=== PATIENT | female | born 1980 | race Caucasian/White ===

== ENCOUNTER 2016-08-05 11:11 | Emergency (ER) | payer SELFPAY ==
[~2016-08-05] VITALS: Ht 165.1 cm; Wt 71.0 kg
[~2016-08-05 11:11] MED LIST: CIPR250T2 PO; DICY1TAB26 PO; PROM25SU8 PO; Z.0.BCPILL PO
[2016-08-05 11:13] VITALS: BP 113/79; PULSE 94; RESP 20; TEMP 98.3; O2SAT 99
--- NOTE | 2016-08-05 11:27 | PD ---
Physical Exam Time Seen by Provider: 11:25 Narrative 36yo F c/o generalized abd pain and diarrhea x 3 days. +vomiting x 1. Denies fever. LMP ended 5 days ago. Patient seen in triage. Awaiting bed placement. VS reviewed. Data Data Last Documented VS Vital Signs Date Time Temp Pulse Resp B/P Pulse Ox O2 Delivery O2 Flow Rate FiO2 08/05/16 11:13 98.3 94 20 113/79 99 Room Air MDM Supervised Visit with BRIANNA: Negra Souza Aug 05, 2016 11:27
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
[2016-08-05 14:36] LABS: BACTERIA, URINE RARE /hpf; BLOOD, URINE SMALL (NEG); COMMENT (UR) CULT NOT INDICATED; CULTURE IF INDICATED CULT NOT INDICATED; GLUCOSE,URINE NEG (NEG); KETONE, URINE NEG (NEG); NITRITE,URINE NEG (NEG); PH, URINE 5.5 (5.0-8.5); SQUAMOUS EPITHELIAL CELL URINE 3 /hpf (0-5); URINE COLOR YELLOW (YELLW/STRAW)
== END 2016-08-05 15:32 | disposition home or self-care (01) ==
LOC: NEPD 11:11
DX: R10.84 Generalized abdominal pain (principal); F10.10 Alcohol abuse, uncomplicated; S90.822A Blister (nonthermal), left foot, initial encounter; S90.821A Blister (nonthermal), right foot, initial encounter; R19.7 Diarrhea, unspecified; R11.10 Vomiting, unspecified; I10 Essential (primary) hypertension; Z59.0 Homelessness; X58.XXXA Exposure to other specified factors, initial encounter
CPT/HCPCS: 81001; 84703; 99283

== ENCOUNTER 2016-10-06 22:48 | Observation (INO) | payer SELFPAY ==
[~2016-10-06] VITALS: Ht 165.1 cm; Wt 70.0 kg
[~2016-10-06 22:48] MED LIST changes: +IOHEXOL 350 MG/ML 10 ML VIAL (for RAD DIAG) IVCONTRAST ONE
[2016-10-06 23:02] VITALS: BP 134/86; PULSE 78; RESP 18; TEMP 98.8; O2SAT 100
[2016-10-06] MEDS ORDERED: SODIUM CHLOR 0.9% 1000 ML INJ 1,000 ML IV SCH (23:07)
[2016-10-06 23:15] VITALS: O2SAT 98
[2016-10-06] MEDS ORDERED: SODIUM CHLORIDE 0.9% FLUSH 10 ML FLUSH IVF PRN (23:15)
[2016-10-06] MEDS ORDERED: PANTOPRAZOLE SODIUM 40 MG VIAL IVP ONE (23:15)
--- NOTE | 2016-10-06 23:37 | PD ---
HPI Chief Complaint: Bleeding Time Seen by Provider: 23:33 Travel History International Travel<30 days: No Contact w/Intl Traveler<30days: No Traveled to known affect area: No History of Present Illness HPI 36-year-old female with history of alcohol abuse, cirrhosis, previous GI bleed, presents to the ER today for several days history of blood in the stools, vomiting up blood today, abdominal pains. She states is currently a 9 out of 10. She denies any fevers or other symptoms. Patient states that she had put out about a cup of bloody stools today. Modifying Factors: None Associated Signs & Symptoms: Nausea, vomiting with blood, blood in the stools, abdominal pain Risk Factors: Cirrhosis PFSH Past Medical History Asthma: Yes Depression: Yes Diminished Hearing: No Hypertension: Yes Reproductive: Yes (HPV) Respiratory: Yes (ASTHMA) Immunizations Current: Yes ?: Unknown LMP: 6 weeks : 3 Para: 1 Social History Alcohol Use: Yes (DAILY) Tobacco Use: No Substance Use: No Allergies-Medications (Allergen,Severity, Reaction): Coded Allergies: ciprofloxacin (Unverified Allergy, Severe, Urinary Freq (Inc/Dec), 10/06/16 ) Reported Meds & Prescriptions Reported Meds & Active Scripts Active No Active Prescriptions or Reported Medications Review of Systems Except as stated in HPI: all other systems reviewed are Neg Physical Exam Narrative GENERAL: Well-developed female patient currently in moderate distress. Awake and oriented 3. SKIN: Focused skin assessment warm/dry. HEAD: Atraumatic. Normocephalic. EYES: Pupils equal and round. No scleral icterus. No injection or drainage. ENT: No nasal bleeding or discharge. Mucous membranes pink and moist. NECK: Trachea midline. No JVD. CARDIOVASCULAR: Regular rate and rhythm. No murmur appreciated. RESPIRATORY: No accessory muscle use. Clear to auscultation. Breath sounds equal bilaterally. GASTROINTESTINAL: Abdomen soft, diffuse abdominal tenderness without guarding or rebound, nondistended. Hepatic and splenic margins not palpable. RECTAL EXAM: No masses or tenderness, stool is reddish brown. Hemoccult positive. MUSCULOSKELETAL: No obvious deformities. No clubbing. No cyanosis. No edema. NEUROLOGICAL: Awake and alert. No obvious cranial nerve deficits. Motor grossly within normal limits. Normal speech. PSYCHIATRIC: Appropriate mood and affect; insight and judgment normal. Data Data Last Documented VS Vital Signs Date Time Temp Pulse Resp B/P (MAP) Pulse Ox O2 Delivery O2 Flow Rate FiO2 10/06/16 23:15 98 Room Air 10/06/16 23:02 98.8 78 18 134/86 (102) Orders Orders Complete Blood Count With Diff (10/06/16 23:05) Comprehensive Metabolic Panel (10/06/16 23:05) Prothrombin Time / Inr (Pt) (10/06/16 23:05) Act Partial Throm Time (Ptt) (10/06/16 23:05) Ecg Monitoring (10/06/16 23:05) Orthostatic Vital Signs (10/06/16 23:05) Oximetry (10/06/16 23:05) Oxygen Administration (10/06/16 23:05) Iv Access Insert/Monitor (10/06/16 23:05) Type And Screen (10/06/16 23:05) Ed Urine Pregnancytest Poc (10/06/16 23:05) Pantoprazole Inj (Protonix Inj) (10/06/16 23:15) Sodium Chlor 0.9% 1000 Ml Inj (Ns 1000 M (10/06/16 23:07) Sodium Chloride 0.9% Flush (Ns Flush) (10/06/16 23:15) Lipase (10/06/16 23:15) Morphine Inj (Morphine Inj) (10/06/16 23:45) Ondansetron Inj (Zofran Inj) (10/06/16 23:45) Ct Abd/Pel W Iv Contrast(Rout) (10/06/16 23:33) Iohexol 350 Inj (Omnipaque 350 Inj) (10/06/16 00:34) Admit Order (Ed Use Only) (10/07/16 02:10) Labs Laboratory Tests Test 10/06/16 23:15 White Blood Count 7.3 TH/MM3 Red Blood Count 4.18 MIL/MM3 Hemoglobin 13.2 GM/DL Hematocrit 39.4 % Mean Corpuscular Volume 94.2 FL Mean Corpuscular Hemoglobin 31.5 PG Mean Corpuscular Hemoglobin Concent 33.5 % Red Cell Distribution Width 15.5 % Platelet Count 80 TH/MM3 Mean Platelet Volume 8.8 FL Neutrophils (%) (Auto) 67.7 % Lymphocytes (%) (Auto) 25.1 % Monocytes (%) (Auto) 5.3 % Eosinophils (%) (Auto) 1.4 % Basophils (%) (Auto) 0.5 % Neutrophils # (Auto) 4.9 TH/MM3 Lymphocytes # (Auto) 1.8 TH/MM3 Monocytes # (Auto) 0.4 TH/MM3 Eosinophils # (Auto) 0.1 TH/MM3 Basophils # (Auto) 0.0 TH/MM3 CBC Comment AUTO DIFF Differential Comment AUTO DIFF CONFIRMED Prothrombin Time 14.1 SEC Prothromb Time International Ratio 1.3 RATIO Activated Partial Thromboplast Time 31.5 SEC Blood Urea Nitrogen 4 MG/DL Creatinine 0.71 MG/DL Random Glucose 101 MG/DL Total Protein 7.8 GM/DL Albumin 3.2 GM/DL Calcium Level 8.5 MG/DL Alkaline Phosphatase 87 U/L Aspartate Amino Transf (AST/SGOT) 100 U/L Alanine Aminotransferase (ALT/SGPT) 40 U/L Total Bilirubin 1.3 MG/DL Sodium Level 142 MEQ/L Potassium Level 3.8 MEQ/L Chloride Level 109 MEQ/L Carbon Dioxide Level 23.7 MEQ/L Anion Gap 9 MEQ/L Estimat Glomerular Filtration Rate 93 ML/MIN Lipase 162 U/L MDM Medical Decision Making Medical Screen Exam Complete: Yes Emergency Medical Condition: Yes Medical Record Reviewed: Yes Interpretation(s) Laboratory Tests Test 10/06/16 23:15 Platelet Count 80 TH/MM3 (150-450) Prothrombin Time 14.1 SEC (9.8-11.6) Activated Partial Thromboplast Time 31.5 SEC (24.3-30.1) Blood Urea Nitrogen 4 MG/DL (7-18) Albumin 3.2 GM/DL (3.4-5.0) Aspartate Amino Transf (AST/SGOT) 100 U/L (15-37) Total Bilirubin 1.3 MG/DL (0.2-1.0) Chloride Level 109 MEQ/L (98-107) Last 24 hours Impressions Abdomen/Pelvis CT 10/06/16 2253 Signed Impressions: Service Date/Time: Friday, October 07, 2016 00:23 - CONCLUSION: 1. No acute finding is identified in the abdomen or pelvis. 2. However, there is hepatomegaly with cirrhosis. There also findings diagnostic of portal hypertension including splenomegaly, recannulized paraumbilical vein, and varices throughout the abdomen. Karlos Fletcher MD Differential Diagnosis GI bleed versus hemorrhoidal bleed versus coagulopathy Narrative Course Patient has long history of hepatic issues with peripheral hypertension. She is currently having gastrointestinal bleeding although vital signs are stable at the moment. Her H&H appears to be stable. She states she had put out a couple of bleeding already and at this point, my consideration would be to observe her for GI bleeding. Case was discussed with Dr. Garza for admission. [facility] Point of Care Internal Pos. & Neg. Controls: Passed Fecal Specimen Occult Blood: Positive Diagnosis Primary Impression: GI bleeding Admitting Information Admitting Physician Requests: Admit Scripts No Active Prescriptions or Reported Meds Hawa Almonte MD Oct 06, 2016 23:37
[2016-10-06 23:45] LABS: APTT (PATIENT) 31.5 SEC (24.3-30.1); INTERNATIONAL NORMALIZED RATIO 1.3 RATIO; PROTHROMBIN TIME - PATIENT 14.1 SEC (9.8-11.6)
[2016-10-06] MEDS ORDERED: ONDANSETRON HCL 4 MG/2 ML VIAL IV PUSH ONE (23:45)
[2016-10-06] MEDS ORDERED: MORPHINE SULFATE 4 MG/ML INJ IV PUSH ONE (23:45)
[2016-10-06 23:49] LABS: ALT (GPT) 40 U/L (10-53)
[2016-10-06 23:51] LABS: ALKALINE PHOSPHATASE 87 U/L (45-117); TOTAL BILIRUBIN ADULT 1.3 MG/DL (0.2-1.0)
[2016-10-06 23:53] LABS: ANION GAP 9 MEQ/L (5-15); AST (GOT) 100 U/L (15-37); AUTOMATED NEUTROPHIL # 4.9 TH/MM3 (1.8-7.7); BASOPHIL % 0.5 % (0.0-2.0); BICARBONATE 23.7 MEQ/L (21.0-32.0); BLOOD UREA NITROGEN 4 MG/DL (7-18); CHLORIDE 109 MEQ/L (98-107); EOSINOPHIL # 0.1 TH/MM3 (0-0.4); EOSINOPHIL % 1.4 % (0.0-4.0); GLOMERULAR FILTRATION RATE 93 ML/MIN (>89); HEMATOCRIT 39.4 % (35.0-46.0); LYMPH % 25.1 % (9.0-44.0); LYMPHOCYTE # 1.8 TH/MM3 (1.0-4.8); MEAN CELL VOLUME 94.2 FL (80.0-100.0); MEAN CORPUSCULAR HEMOGLOBIN 31.5 PG (27.0-34.0); MEAN CORPUSCULAR HGB CONC 33.5 % (32.0-36.0); MONO % 5.3 % (0.0-8.0); NEUT % 67.7 % (16.0-70.0); PLATELET COUNT 80 TH/MM3 (150-450); RED BLOOD COUNT 4.18 MIL/MM3 (4.00-5.30); RED CELL DISTRIBUTION WIDTH 15.5 % (11.6-17.2); SODIUM (NA) 142 MEQ/L (136-145); WHITE BLOOD COUNT 7.3 TH/MM3 (4.0-11.0)
[2016-10-06 23:55] LABS: POTASSIUM 3.8 MEQ/L (3.5-5.1)
[2016-10-07] VITALS (7 sets, daily range): BP systolic 105–146; BP diastolic 64–89; PULSE 69–83; RESP 16–21; TEMP 97.5–98.6; O2SAT 96–100
[2016-10-07 00:08] LABS: HEMO FLAGS AUTO DIFF
--- NOTE | 2016-10-07 00:47 | RADRPT ---
EXAM DATE/TIME: 10/07/2016 00:23 [facility] COMPARISON: No previous studies available for comparison. INDICATIONS : Abdominal pain. IV CONTRAST: 95 cc Omnipaque 350 (iohexol) IV ORAL CONTRAST: No oral contrast ingested. RADIATION DOSE: 6.75 CTDIvol (mGy) MEDICAL HISTORY : Hypertension. Asthma. SURGICAL HISTORY : None. ENCOUNTER: Initial ACUITY: 1 day PAIN SCALE: 4/10 LOCATION: Bilateral abdomen TECHNIQUE: Volumetric scanning of the abdomen and pelvis was performed. Using automated exposure control and ad justment of the mA and/or kV according to patient size, radiation dose was kept as low as reasonably achievable to obtain optimal diagnostic quality images. DICOM format image data is available electro nically for review and comparison. FINDINGS: There is respiratory motion artifact. LOWER LUNGS: The visualized lower lungs are clear. LIVER: Failure measures 20 cm in length and demonstrates heterogeneous enhancement without a focal lesion ap preciated. There is an enlarged caudate lobe. Portal vein is decreased in size measuring approximatel y 7 mm. No calcified gallstones are present. SPLEEN: Enlarged measuring 15.9 cm in length. PANCREAS: Within normal limits. KIDNEYS: Normal in size and shape. There is no mass, stone or hydronephrosis. ADRENAL GLANDS: Within normal limits. VASCULAR: There is no aortic aneurysm. There is a recannulized gram local vein along with paraesophageal varice s and multiple enlarged varices in the right abdomen. Portal vein is diminutive in size. BOWEL/MESENTERY: The stomach, small bowel, and colon demonstrate no acute abnormality. There is no free intraperitone al air or fluid. There is mild mesenteric edema. ABDOMINAL WALL: Within normal limits. RETROPERITONEUM: There is no lymphadenopathy. BLADDER: No wall thickening or mass. REPRODUCTIVE: Within normal limits. INGUINAL: There is no lymphadenopathy or hernia. MUSCULOSKELETAL: No acute abnormality. CONCLUSION: 1. No acute finding is identified in the abdomen or pelvis. 2. However, there is hepatomegaly with cirrhosis. There also findings diagnostic of portal hypertensi on including splenomegaly, recannulized paraumbilical vein, and varices throughout the abdomen. Karlso Fletcher MD on October 07, 2016 at 0:40 Board Certified Radiologist. This report was verified electronically.
[2016-10-07 00:50] LABS: SCAN/DIFF AUTO DIFF CONFIRMED
[2016-10-07] MEDS ORDERED: FLUMAZENIL 0.5 MG/5 ML VIAL IV PUSH PRN (02:15)
[2016-10-07] MEDS ORDERED: LORazepam 2 MG TAB PO PRN (02:15)
[2016-10-07] MEDS ORDERED: MAGNESIUM HYDROXIDE SUSP 30 ML CUP PO PRN (02:15)
[2016-10-07] MEDS ORDERED: HALOPERIDOL LACTATE 5 MG/ML AMP IM PRN (02:15)
[2016-10-07] MEDS ORDERED: SENNOSIDES 8.6 MG TAB PO PRN (02:15)
[2016-10-07] MEDS ORDERED: ONDANSETRON HCL 4 MG/2 ML VIAL IVP PRN (02:15)
[2016-10-07] MEDS ORDERED: BISACODYL 10 MG SUPP RECTAL PRN (02:15)
[2016-10-07] MEDS ORDERED: LORazepam 1 MG TAB PO PRN (02:15)
[2016-10-07] MEDS ORDERED: LORazepam 2 MG/ML VIAL IV PUSH PRN ×4 (02:15)
[2016-10-07] MEDS ORDERED: LACTULOSE SYRUP 20 GM/30 ML CUP PO PRN (02:15)
--- NOTE | 2016-10-07 02:29 | HHI.HP ---
[facility] Primary Care Physician Admission Diagnosis GI bleed Diagnoses: (1) GI bleed Diagnosis: Principal (2) Alcohol abuse Diagnosis: Principal (3) Thrombocytopenia Diagnosis: Principal Travel History International Travel<30 Days: No Contact w/Intl Traveler <30 Da: No Traveled to Known Affected Are: No History of Present Illness This is a 36-year-old female with a PMH of Anxiety, Depression, HTN, Alcohol Abuse and Cirrhosis who presented to the ER with complaints of hematemesis and melena x3 days. States symptoms have gotten progressively worse, now w/ associated abdominal pain. Denies fever, chills or sick contacts. On arrival, BP 134/86, HR 78, O2 sat are percent on RA, Afebrile. CBC unremarkable except for platelet 80, previously 192 on 09/22/15. Hgb 13.2. Chemistry essentially unremarkable. INR 1.3. CT Abd/Pelvis w/ no acute findings, hepatomegaly, cirrhosis and portal hypertension w/ varices throughout abdomen. S/p Protonix in ER. Review of Systems Except as stated in HPI: all other systems reviewed are Neg ROS: 14 point review of systems otherwise negative. Past Family Social History Past Medical History PMH: Anxiety, Depression, HTN, Alcohol Abuse and Cirrhosis Past Surgical History PAST SURGICAL HISTORY: None Allergies: Coded Allergies: ciprofloxacin (Unverified Allergy, Severe, Urinary Freq (Inc/Dec), 10/06/16 ) Family History PAST FAMILY HISTORY: Reviewed. No h/o DM or CAD Social History PAST SOCIAL HISTORY: Drinks daily. Negative for tobacco or drugs. Physical Exam Vital Signs Vital Signs Date Time Temp Pulse Resp B/P (MAP) Pulse Ox O2 Delivery O2 Flow Rate FiO2 10/06/16 23:15 98 Room Air 10/06/16 23:02 98.8 78 18 134/86 (102) 100 Physical Exam PE: GENERAL: Middle-aged white female in no acute distress. Ambulating without difficulty HEENT: PERRLA, EOMI. No scleral icterus or conjunctival pallor. No lid lag or facial droop. CARDIOVASCULAR: Regular rate and rhythm. No obvious murmurs to auscultation. No chest tenderness to palpation. RESPIRATORY: No obvious rhonchi or wheezing. Clear to auscultation. Breath sounds equal bilaterally. GASTROINTESTINAL: Abdomen soft, generalized tenderness to palpation, nondistended. BS normal. MUSCULOSKELETAL: Extremities without clubbing, cyanosis, or edema. No obvious deformities. NEUROLOGICAL: Awake, alert and oriented x4. No focal neurologic deficits. Moving both upper and lower extremities spontaneously. Laboratory Laboratory Tests Test 10/06/16 23:15 White Blood Count 7.3 Red Blood Count 4.18 Hemoglobin 13.2 Hematocrit 39.4 Mean Corpuscular Volume 94.2 Mean Corpuscular Hemoglobin 31.5 Mean Corpuscular Hemoglobin Concent 33.5 Red Cell Distribution Width 15.5 Platelet Count 80 Mean Platelet Volume 8.8 Neutrophils (%) (Auto) 67.7 Lymphocytes (%) (Auto) 25.1 Monocytes (%) (Auto) 5.3 Eosinophils (%) (Auto) 1.4 Basophils (%) (Auto) 0.5 Neutrophils # (Auto) 4.9 Lymphocytes # (Auto) 1.8 Monocytes # (Auto) 0.4 Eosinophils # (Auto) 0.1 Basophils # (Auto) 0.0 CBC Comment AUTO DIFF Differential Comment AUTO DIFF CONFIRMED Prothrombin Time 14.1 Prothromb Time International Ratio 1.3 Activated Partial Thromboplast Time 31.5 Blood Urea Nitrogen 4 Creatinine 0.71 Random Glucose 101 Total Protein 7.8 Albumin 3.2 Calcium Level 8.5 Alkaline Phosphatase 87 Aspartate Amino Transf (AST/SGOT) 100 Alanine Aminotransferase (ALT/SGPT) 40 Total Bilirubin 1.3 Sodium Level 142 Potassium Level 3.8 Chloride Level 109 Carbon Dioxide Level 23.7 Anion Gap 9 Estimat Glomerular Filtration Rate 93 Lipase 162 Result Diagram: 10/06/16231410/06/162314 Caprini VTE Risk Assessment Caprini VTE Risk Assessment: No/Low Risk (score <= 1) VTE Pharm Contraindication: Active bleeding Caprini Risk Assessment Model Point Value = 1 Point Value = 2 Point Value = 3 Point Value = 5 Age 41-60 Minor surgery BMI > 25 kg/m2 Swollen legs Varicose veins or History of unexplained or recurrent spontaneous Oral contraceptives or hormone replacement Sepsis (< 1 month) Serious lung disease, including pneumonia (< 1 month) Abnormal pulmonary function Acute myocardial infarction Congestive heart failure (< 1 month) History of inflammatory bowel disease Medical patient at bed rest Age 61-74 Arthroscopic surgery Major open surgery (> 45 min) Laparoscopic surgery (> 45 min) Malignancy Confined to bed (> 72 hours) Immobilizing plaster cast Central venous access Age >= 75 History of VTE Family history of VTE Factor V Leiden Prothrombin [id number] Lupus anticoagulant Anticardiolipin antibodies Elevated serum homocysteine Heparin-induced thrombocytopenia Other congenital or acquired thrombophilia Stroke (< 1 month) Elective arthroplasty Hip, pelvis, or leg fracture Acute spinal cord injury (< 1 month) Prophylaxis Regimen Total Risk Factor Score Risk Level Prophylaxis Regimen 0-1 Low Early ambulation 2 Moderate Order ONE of the following: *Sequential Compression Device (SCD) *Heparin 5000 units SQ BID 3-4 Higher Order ONE of the following medications: *Heparin 5000 units SQ TID *Enoxaparin/Lovenox 40 mg SQ daily (WT < 150 kg, CrCl > 30 mL/min) *Enoxaparin/Lovenox 30 mg SQ daily (WT < 150 kg, CrCl > 10-29 mL/min) *Enoxaparin/Lovenox 30 mg SQ BID (WT < 150 kg, CrCl > 30 mL/min) AND/OR *Sequential Compression Device (SCD) 5 or more Highest Order ONE of the following medications: *Heparin 5000 units SQ TID (Preferred with Epidurals) *Enoxaparin/Lovenox 40 mg SQ daily (WT < 150 kg, CrCl > 30 mL/min) *Enoxaparin/Lovenox 30 mg SQ daily (WT < 150 kg, CrCl > 10-29 mL/min) *Enoxaparin/Lovenox 30 mg SQ BID (WT < 150 kg, CrCl > 30 mL/min) AND *Sequential Compression Device (SCD) Assessment and Plan Problem List: (1) GI bleed ICD Code: K92.2 - Gastrointestinal hemorrhage, unspecified (2) Alcohol abuse ICD Code: F10.10 - Alcohol abuse, uncomplicated Status: Acute (3) Thrombocytopenia ICD Code: D69.6 - Thrombocytopenia, unspecified Assessment and Plan A/P: 1. GI Bleed: reports melena x3 days and few episodes of hematemesis, now resolved. Hemodynamically stable, vitals normal. Hgb 13.2. S/p Protonix IV in ER, will continue w/ Protonix. CT Abd/Pelvis w/ no acute findings, cirrhosis , hepatomegaly, varices throughout abdomen, images reviewed by me. Repeat labs in am for trend. Consult GI for further evaluation. 2. Alcohol Abuse: Drinks daily. High risk for withdrawal. CIWA, Seizure Precautions, MVT/Thiamine/Folate replacement. 3. Thrombocytopenia: Platelets 80, previously 192 on 09/22/15. Will monitor, repeat labs in am. 4. DVT Prophylaxis: Pharmacologic contraindication in light of active bleeding. 5. Social work for d/c planning as needed. 6. Case discussed w/ ER physician at length. Glenna Garza MD Oct 07, 2016 02:29
[2016-10-07] MEDS: cefTRIAXone INJ 1,000 MG in SODIUM CHLORIDE 0.9% INJ 100 ML IV SCH (03:02)
[2016-10-07] MEDS: MORPHINE SULFATE 4 MG/ML INJ IV PRN ×4 (04:12→23:48)
[2016-10-07 05:47] LABS: BASOPHIL % 0.6 % (0.0-2.0); EOSINOPHIL # 0.1 TH/MM3 (0-0.4); EOSINOPHIL % 1.7 % (0.0-4.0); HEMATOCRIT 37.6 % (35.0-46.0); LYMPH % 34.7 % (9.0-44.0); LYMPHOCYTE # 1.8 TH/MM3 (1.0-4.8); MEAN CELL VOLUME 94.5 FL (80.0-100.0); MEAN CORPUSCULAR HEMOGLOBIN 31.2 PG (27.0-34.0); MEAN CORPUSCULAR HGB CONC 33.1 % (32.0-36.0); MONO % 4.3 % (0.0-8.0); NEUT % 58.7 % (16.0-70.0); PLATELET COUNT 58 TH/MM3 (150-450); RED BLOOD COUNT 3.98 MIL/MM3 (4.00-5.30); RED CELL DISTRIBUTION WIDTH 15.7 % (11.6-17.2); WHITE BLOOD COUNT 5.2 TH/MM3 (4.0-11.0)
[2016-10-07 05:52] LABS: HEMO FLAGS DIFF FINAL
[2016-10-07 06:04] LABS: ALT (GPT) 36 U/L (10-53); ANION GAP 12 MEQ/L (5-15); AST (GOT) 77 U/L (15-37); BICARBONATE 22.1 MEQ/L (21.0-32.0); CHLORIDE 111 MEQ/L (98-107); GLOMERULAR FILTRATION RATE 103 ML/MIN (>89); POTASSIUM 3.6 MEQ/L (3.5-5.1); SODIUM (NA) 145 MEQ/L (136-145)
[2016-10-07 06:07] LABS: ALKALINE PHOSPHATASE 81 U/L (45-117); TOTAL BILIRUBIN ADULT 1.4 MG/DL (0.2-1.0)
[2016-10-07 06:08] LABS: BLOOD UREA NITROGEN 3 MG/DL (7-18)
--- NOTE | 2016-10-07 08:07 | PD.CONS ---
HPI History of Present Illness This is a 36 year old female with a history of liver disease secondary to ETOH abuse, who presented to the ER for evaluation of hematemesis and melanotic stool. She was hospitalized at [facility] about a month ago for the same. She was evaluated with an upper and lower endoscopy at that time. She was told that this was related to ETOH, but does not know the details. She continues to drink 3-5 24oz beers daily. She started having nausea/vomiting consisting of small to moderate amount of bright red blood. Around the same time, she started having a large amount of melanotic stool. She has abdominal pain in her mid abdomen/epigastric area that is sharp/constant and radiates to her back. She has occasional heartburn. She has mild bloating, but denies any lower extremity swelling. She used to take Ibuprofen/Naproxen, but quit after her last hospitalization. (Kimberley Calderon) PFSH Past Medical History Alcohol abuse Fatty liver/alcoholic liver cirrhosis GIB (said was related to alcohol abuse) Asthma Depression HTN HPV Past Surgical History EGD/Colonoscopy (Kimberley Calderon) Coded Allergies: ciprofloxacin (Unverified Allergy, Severe, Urinary Freq (Inc/Dec), 10/06/16 ) Medications Allergies Coded Allergies Type Severity Reaction Last Updated Verified ciprofloxacin Allergy Severe Urinary Freq (Inc/Dec) 10/06/16 No Active Scripts Medications Dose Route/Sig Max Daily Dose Days Date Category No Active Prescriptions or Reported Medications Rx Family History Paternal grandfather had liver disease, unclear of the details Social History 3-5 24 oz beers daily No tobacco No illicit drug use (Kimberley Calderon) Review of Systems Constitutional: COMPLAINS OF: Fatigue, DENIES: Fever, Weight loss, Chills Respiratory: DENIES: Cough Cardiovascular: DENIES: Chest pain Gastrointestinal: COMPLAINS OF: Abdominal pain, Black stools, Diarrhea, Nausea , Vomiting, Heartburn, Hematemesis, DENIES: Bloody stools, Constipation Musculoskeletal: COMPLAINS OF: Back pain Neurologic: DENIES: Headache Psychiatric: DENIES: Confusion (Kimberley Calderon) GI Exam Vitals I&O Vital Signs Date Time Temp Pulse Resp B/P (MAP) Pulse Ox O2 Delivery O2 Flow Rate FiO2 10/07/16 07:13 98.6 78 17 126/75 (92) 96 10/07/16 04:48 18 10/07/16 04:00 98.3 73 18 132/83 (99) 100 10/07/16 02:30 80 16 105/68 (80) 100 Room Air 10/06/16 23:15 98 Room Air 10/06/16 23:02 98.8 78 18 134/86 (102) 100 I/O 10/06/16 10/06/16 10/06/16 10/07/16 10/07/16 10/07/16 07:00 15:00 23:00 07:00 15:00 23:00 Intake Total 1480 ml Balance 1480 ml Intake Oral 480 ml IV Total 1000 ml # Voids 1 Imaging Last Impressions Abdomen/Pelvis CT 10/06/16 0330 Signed Impressions: Service Date/Time: Friday, October 07, 2016 00:23 - CONCLUSION: 1. No acute finding is identified in the abdomen or pelvis. 2. However, there is hepatomegaly with cirrhosis. There also findings diagnostic of portal hypertension including splenomegaly, recannulized paraumbilical vein, and varices throughout the abdomen. Karlos Fletcher MD Laboratory Test 10/06/16 23:15 10/07/16 05:00 White Blood Count 7.3 TH/MM3 5.2 TH/MM3 Red Blood Count 4.18 MIL/MM3 3.98 MIL/MM3 Hemoglobin 13.2 GM/DL 12.4 GM/DL Hematocrit 39.4 % 37.6 % Mean Corpuscular Volume 94.2 FL 94.5 FL Mean Corpuscular Hemoglobin 31.5 PG 31.2 PG Mean Corpuscular Hemoglobin Concent 33.5 % 33.1 % Red Cell Distribution Width 15.5 % 15.7 % Platelet Count 80 TH/MM3 58 TH/MM3 Mean Platelet Volume 8.8 FL 8.3 FL Neutrophils (%) (Auto) 67.7 % 58.7 % Lymphocytes (%) (Auto) 25.1 % 34.7 % Monocytes (%) (Auto) 5.3 % 4.3 % Eosinophils (%) (Auto) 1.4 % 1.7 % Basophils (%) (Auto) 0.5 % 0.6 % Neutrophils # (Auto) 4.9 TH/MM3 3.0 TH/MM3 Lymphocytes # (Auto) 1.8 TH/MM3 1.8 TH/MM3 Monocytes # (Auto) 0.4 TH/MM3 0.2 TH/MM3 Eosinophils # (Auto) 0.1 TH/MM3 0.1 TH/MM3 Basophils # (Auto) 0.0 TH/MM3 0.0 TH/MM3 CBC Comment AUTO DIFF DIFF FINAL Differential Comment AUTO DIFF CONFIRMED Prothrombin Time 14.1 SEC Prothromb Time International Ratio 1.3 RATIO Activated Partial Thromboplast Time 31.5 SEC Blood Urea Nitrogen 4 MG/DL 3 MG/DL Creatinine 0.71 MG/DL 0.65 MG/DL Random Glucose 101 MG/DL 128 MG/DL Total Protein 7.8 GM/DL 7.3 GM/DL Albumin 3.2 GM/DL 2.9 GM/DL Calcium Level 8.5 MG/DL 7.7 MG/DL Alkaline Phosphatase 87 U/L 81 U/L Aspartate Amino Transf (AST/SGOT) 100 U/L 77 U/L Alanine Aminotransferase (ALT/SGPT) 40 U/L 36 U/L Total Bilirubin 1.3 MG/DL 1.4 MG/DL Sodium Level 142 MEQ/L 145 MEQ/L Potassium Level 3.8 MEQ/L 3.6 MEQ/L Chloride Level 109 MEQ/L 111 MEQ/L Carbon Dioxide Level 23.7 MEQ/L 22.1 MEQ/L Anion Gap 9 MEQ/L 12 MEQ/L Estimat Glomerular Filtration Rate 93 ML/MIN 103 ML/MIN Lipase 162 U/L Hematology Comments * Physical Examination HEENT: Normocephalic; atraumatic; no jaundice. CHEST: CTA CARDIAC: RRR ABDOMEN: Soft, nondistended, mild epigastric tenderness; hepatosplenomegaly; bowel sounds are present in all four quadrants. EXTREMITIES: No clubbing, cyanosis, or edema. SKIN: Normal; no rash; no jaundice. TIE CUTTER: No focal deficits; alert and oriented times three. (Kimberley CalderonP) Assessment and Plan Plan ASSESSMENT: - Upper GIB, Hematemesis, Melena. Pt with liver cirrhosis/ongoing ETOH use. S/ P recent hospitalization at [facility] 1 month ago for the same, had egd/colonoscopy- states she was told that her bleeding was related to ETOH abuse, but cannot recall the details. She continues to drink 3-5 24 oz beers daily. No nsaids since last hospitalization. Started having hematemesis (bright red) and dark melanotic stool on Friday. HH 12.4/37.6. Protonix/Octreotide. Make NPO, EGD with possible band ligation today. - Abdominal pain. CT Scan abdomen and pelvis (10/07/16)-----> No acute finding is identified in the abdomen or pelvis. However, there is hepatomegaly with cirrhosis. There are also findings diagnostic of portal hypertension including splenomegaly, recannulized paraumbilical vein, and varices throughout the abdomen. Protonix. - Elevated LFTs, Liver cirrhosis with portal htn, splenomegaly, varices on CT. Ongoing ETOH use. MELD 7. T> Bili 1.4, AST 77, ALT 36, Alk Phosph 81. - Thrombocytopenia, coagulopathy secondary to liver cirrhosis. Plt 58. PT 14.1 , INR 1.3. - ETOH abuse, DT precautions per attending - Asthma, depression, hx htn per attending PLAN: - Plan for egd with possible band ligation - Obtain consents - NPO - Protonix Gtt - Octreotide Gtt - HH q6h x 3 - Transfuse as necessary - CBC, PT/INR, CMP in am - Supportive care - Further recommendations to follow based on results of above - Pt seen and examined by Dr. Chavez and myself and this note is written on his behalf (Kimberley Calderon) Physician Comments Seen and examined,plan as above, will plan for EGD and possible banding today. Further recommendations to follow. (Hansel Chavez MD) Kimberley Calderon Oct 07, 2016 08:07 Hansel Chavez MD Oct 07, 2016 09:32
[2016-10-07] MEDS ORDERED: SODIUM CHLORIDE 0.9% FLUSH 10 ML FLUSH IV FLUSH PRN (08:15)
[2016-10-07] MEDS ORDERED: PANTOPRAZOLE SODIUM 40 MG VIAL IV PUSH SCH (09:00)
[2016-10-07] MEDS ORDERED: SODIUM CHLORIDE 0.9% FLUSH 10 ML FLUSH IV FLUSH SCH (09:00)
[2016-10-07] MEDS: DOCUSATE SODIUM 50 MG/SENNA 8.6 MG TAB PO SCH ×2 (10:08→20:43)
[2016-10-07] MEDS: THIAMINE HCL 100 MG TAB PO SCH (10:08)
[2016-10-07] MEDS: SODIUM CHLORIDE 0.9% FLUSH 10 ML FLUSH IV FLUSH SCH ×2 (10:08→20:43)
[2016-10-07] MEDS: MULTIVITAMINS/MINERALS THERAPEUTIC TAB PO SCH (10:08)
[2016-10-07] MEDS: FOLIC ACID 1 MG TAB PO SCH (10:08)
[2016-10-07] MEDS: OCTREOTIDE INJ 500 MCG in SODIUM CHLORID 0.9% 500 ML INJ 499.5 ML IV SCH ×2 (10:09→20:44)
[2016-10-07] MEDS: PANTOPRAZOLE INJ 80 MG in SODIUM CHLORIDE 0.9% INJ 100 ML IV SCH ×2 (10:09→20:44)
--- NOTE | 2016-10-07 11:46 | HHI.PR ---
Subjective Remarks Follow up for abdominal pain, hematemesis, melena. The patient reports feeling better this morning after receiving zofran, morphine, and protonix. Still has some sharp umbilical to epigastric discomfort that radiates to the back. No further vomiting overnight or today. Has not had a BM today. Denies any recent NSAID use. She continues to drink alcohol, down to 3-5 "Four Locos" daily. Previously she used to drink vodka heavily. She is motivated to quit, states she 's tried to get into [facility] however is repeatedly told there are no beds available. She has no other medical complaints at this time. Objective Vitals Vital Signs Date Time Temp Pulse Resp B/P (MAP) Pulse Ox O2 Delivery O2 Flow Rate FiO2 10/07/16 07:13 98.6 78 17 126/75 (92) 96 10/07/16 04:48 18 10/07/16 04:00 98.3 73 18 132/83 (99) 100 10/07/16 02:30 80 16 105/68 (80) 100 Room Air 10/06/16 23:15 98 Room Air 10/06/16 23:02 98.8 78 18 134/86 (102) 100 I/O 10/06/16 10/06/16 10/06/16 10/07/16 10/07/16 10/07/16 07:00 15:00 23:00 07:00 15:00 23:00 Intake Total 1480 ml 0.5 ml Balance 1480 ml 0.5 ml Intake Oral 480 ml IV Total 1000 ml 0.5 ml # Voids 1 Result Diagram: 10/07/16 0500 10/07/16 0500 Imaging Last Impressions Abdomen/Pelvis CT 10/06/16 4303 Signed Impressions: Service Date/Time: Friday, October 07, 2016 00:23 - CONCLUSION: 1. No acute finding is identified in the abdomen or pelvis. 2. However, there is hepatomegaly with cirrhosis. There also findings diagnostic of portal hypertension including splenomegaly, recannulized paraumbilical vein, and varices throughout the abdomen. Karlos Fletcher MD Objective Remarks GENERAL: Well-nourished, well-developed young female patient in [facility]. SKIN: Warm and dry. No rash. HEENT: Normocephalic. Atraumatic. Pupils equal and round. Mucous membranes pink and moist. CARDIOVASCULAR: Regular rate and rhythm. S1, S2 noted. No murmur appreciated. RESPIRATORY: No accessory muscle use. Clear to auscultation. Breath sounds equal bilaterally. GASTROINTESTINAL: Abdomen soft, nondistended, mild epigastric TTP, no guarding. Normoactive bowel sounds x4. MUSCULOSKELETAL: No obvious deformities. Extremities without clubbing, cyanosis , or edema. NEUROLOGICAL: Awake and alert. No obvious cranial nerve deficits. Motor grossly within normal limits. Moves all extremities spontaneously. Normal speech. PSYCHIATRIC: Appropriate mood and affect; insight and judgment normal. Medications and IVs Current Medications Medications (Trade) Dose Ordered Sig/Rochelle Route Start Time Stop Time Status Last Admin (NS Flush) 2 ml UNSCH PRN IVF 10/06/16 23:15 (Folate) 1 mg DAILY PO 10/07/16 09:00 10/12/16 08:59 10/07/16 10:08 (Vitamin B1) 100 mg DAILY PO 10/07/16 09:00 10/07/16 10:08 (Theragran M Tab) 1 tab DAILY PO 10/07/16 09:00 10/12/16 08:59 10/07/16 10:08 (Romazicon Inj) 0.2 mg Q1M PRN IV PUSH 10/07/16 02:15 (Ativan) 1 mg Q4H PRN PO 10/07/16 02:15 (Ativan Inj) 1 mg Q4H PRN IV PUSH 10/07/16 02:15 (Ativan) 2 mg Q2H PRN PO 10/07/16 02:15 (Ativan Inj) 2 mg Q2H PRN IV PUSH 10/07/16 02:15 (Ativan Inj) 2 mg Q1H PRN IV PUSH 10/07/16 02:15 (Ativan Inj) 2 mg Q15M PRN IV PUSH 10/07/16 02:15 (Haldol Inj) 2 mg Q15M PRN IM 10/07/16 02:15 (NS Flush) 2 ml UNSCH PRN IV FLUSH 10/07/16 02:15 (NS Flush) 2 ml BID IV FLUSH 10/07/16 09:00 10/07/16 10:08 (Zofran Inj) 4 mg Q6H PRN IVP 10/07/16 02:15 (Morphine Inj) 2 mg Q3H PRN IV 10/07/16 02:15 10/07/16 10:08 (Roxicodone) 5 mg Q4H PRN PO 10/07/16 02:15 (Elicia-Colace) 1 tab BID PO 10/07/16 09:00 10/07/16 10:08 (Milk Of Magnesia Liq) 30 ml Q12H PRN PO 10/07/16 02:15 (Senokot) 17.2 mg Q12H PRN PO 10/07/16 02:15 (Dulcolax Supp) 10 mg DAILY PRN RECTAL 10/07/16 02:15 (Lactulose Liq) 30 ml DAILY PRN PO 10/07/16 02:15 Ceftriaxone Sodium 1000 mg/ Sodium Chloride 100 ml @ 200 mls/hr Q24H IV 10/07/16 03:00 10/07/16 03:02 Pantoprazole Sodium 80 mg/ Sodium Chloride 100 ml @ 10 mls/hr CONTINUOUS IV 10/07/16 10:00 10/07/16 10:09 Octreotide Acetate 500 mcg/ Sodium Chloride 500 ml @ 50 mls/hr Q10H IV 10/07/16 10:00 10/12/16 09:59 10/07/16 10:09 A/P Problem List: (1) GI bleed ICD Code: K92.2 - Gastrointestinal hemorrhage, unspecified (2) Alcohol abuse ICD Code: F10.10 - Alcohol abuse, uncomplicated Status: Acute (3) Thrombocytopenia ICD Code: D69.6 - Thrombocytopenia, unspecified Assessment and Plan 36-year-old female with a PMH of Anxiety, Depression, HTN, Alcohol Abuse and Cirrhosis who presented to the ER with complaints of abdominal pain, hematemesis , and melena x3 days. Upper GI Bleeding: with hematemesis/melena. Hgb 13.2. S/p Protonix IV in ER, will continue w/ Protonix. CT Abd/Pelvis images reviewed, shows cirrhosis, hepatomegaly, varices throughout abdomen. Monitor serial H&H, currently stable, Hgb 13.2 --> 12.8. Continue IV Protonix drip and IV Octreotide drip. Consult GI. Plan for EGD with possible band ligation today. Diet per GI post procedure. Alcohol Abuse: Drinks 3-5 Four Locos daily (Four [place]on is 16oz drink with 11% alcohol, 1 Four Neon equivalent to 3.33 beers). High risk for withdrawal. Continue CIWA, Seizure Precautions, MVT/Thiamine/Folate replacement. Patient motivated to quit, will provide information on [facility] and local AA/ rehab. Thrombocytopenia: Platelets 80, previously 192 on 09/22/15. Monitor PLTs. Liver Cirrhosis with Transaminitis: suspect secondary to usp alcohol abuse. Monitor LFTs. Avoid hepatotoxins. DVT Prophylaxis: teds/SCDs. Pharmacologic contraindication in light of active bleeding. Discharge Planning Discharge pending EGD and further clinical improvement. Frieda Neely PA-C Oct 07, 2016 11:46 am
[2016-10-07] MEDS ORDERED: PROPOFOL 200 MG/20 ML AMP IV PUSH ONE (12:04)
[2016-10-07] MEDS ORDERED: DO NOT ADM ANY ANTICOAGULANT DRUGS PRN (12:10)
--- NOTE | 2016-10-07 12:11 | GIPROC ---
[facility] [address] [facility]. [facility], [address] EGD PROCEDURE REPORT EXAM DATE: 10/07/2016 PATIENT NAME: Pili Marques MR #: [id number] BIRTHDATE: 1980 ATTENDING: Hansel Chavez MD ORDER #: [id number] ANALYST MICROBIOLOGY LAB: [facility] and [facility] STATUS: inpatient INDICATIONS: The patient is a 36 yr old female here for an EGD due to hematemesis PROCEDURE PERFORMED: EGD, diagnostic MEDICATIONS: None and Per Anesthesia. TOPICAL ANESTHETIC: none CONSENT: The patient understands the risks and benefits of the procedure and understands that these risks include, but are not limited to: sedation, allergic reaction, infection, perforation and/or bleeding. Alternative means of evaluation and treatment include, among others: physical exam, x-rays, and/or surgical intervention. The patient elects to proceed with this endoscopic procedure. medical equipment was checked for proper function. Hand hygiene and appropriate measures for infection prevention was taken. After the risks, benefits and alternatives of the procedure were thoroughly explained, Informed consent was verified, confirmed and timeout was successfully executed by the treatment team. The patient was anesthetized with topical anesthesia and the Pentax [id number] endoscope was introduced through the mouth and advanced to the second portion of the duodenum. Retroflexion was performed and was normal The gastroscope was then slowly withdrawn and removed. ESOPHAGUS: There was a single small varix in the mid esophagus and distal esophagus. There was evidence of prior scarring. There was a single small varix in the distal esophagus. STOMACH: Moderate portal hypertensive gastropathy was found in the entire examined stomach. There was a small amount of residual food. DUODENUM: The duodenal mucosa appeared normal. ADVERSE EVENTS: There were no complications. IMPRESSIONS: 1. Grade 1 Esophageal varices, small and not exhibiting features of active or recent bleeding. 2. Portal hypertensive gastropathy was found in the entire examined stomach 3. Food residue 4. Normal duodenal mucosa 5. Retroflexion was performed and was normal RECOMMENDATIONS: Hematocrit PATIENT CONDITION: stable DISPOSITION: Observation REPEAT EXAM: Return 6 months for EGD Hansel Chavez MD eSigned: Hansel Chavez MD 10/07/2016 12:11 PM cc: PATIENT NAME: Pili Marques MR#: [id number]
[2016-10-07 14:21] LABS: HEMATOCRIT 38.3 % (35.0-46.0)
[2016-10-07 14:22] LABS: REVIEW FLAG FINAL
[2016-10-07] MEDS: SODIUM CHLORIDE 0.9% FLUSH 10 ML FLUSH IV FLUSH PRN (17:35)
[2016-10-07 20:11] LABS: HEMATOCRIT 38.6 % (35.0-46.0)
[2016-10-07 20:15] LABS: REVIEW FLAG FINAL
[2016-10-08 00:43] LABS: HEMATOCRIT 36.6 % (35.0-46.0); REVIEW FLAG FINAL
[2016-10-08] MEDS: cefTRIAXone INJ 1,000 MG in SODIUM CHLORIDE 0.9% INJ 100 ML IV SCH (03:29)
[2016-10-08 03:40] VITALS: BP 134/84; PULSE 68; RESP 18; TEMP 97.8; O2SAT 99
[2016-10-08] MEDS: MORPHINE SULFATE 4 MG/ML INJ IV PRN ×3 (04:01→17:33)
[2016-10-08 06:06] LABS: AUTOMATED NEUTROPHIL # 3.1 TH/MM3 (1.8-7.7); BASOPHIL % 0.7 % (0.0-2.0); EOSINOPHIL # 0.2 TH/MM3 (0-0.4); EOSINOPHIL % 3.3 % (0.0-4.0); HEMATOCRIT 37.3 % (35.0-46.0); LYMPH % 26.6 % (9.0-44.0); LYMPHOCYTE # 1.3 TH/MM3 (1.0-4.8); MEAN CELL VOLUME 93.6 FL (80.0-100.0); MEAN CORPUSCULAR HEMOGLOBIN 31.7 PG (27.0-34.0); MEAN CORPUSCULAR HGB CONC 33.8 % (32.0-36.0); MONO % 7.2 % (0.0-8.0); NEUT % 62.2 % (16.0-70.0); PLATELET COUNT 59 TH/MM3 (150-450); RED BLOOD COUNT 3.98 MIL/MM3 (4.00-5.30); RED CELL DISTRIBUTION WIDTH 15.3 % (11.6-17.2)
[2016-10-08 06:12] LABS: HEMO FLAGS AUTO DIFF
[2016-10-08 06:16] LABS: INTERNATIONAL NORMALIZED RATIO 1.3 RATIO; PROTHROMBIN TIME - PATIENT 14.8 SEC (9.8-11.6)
[2016-10-08] MEDS: OCTREOTIDE INJ 500 MCG in SODIUM CHLORID 0.9% 500 ML INJ 499.5 ML IV SCH ×2 (06:19→17:13)
[2016-10-08 06:32] LABS: ALKALINE PHOSPHATASE 96 U/L (45-117); ALT (GPT) 48 U/L (10-53); ANION GAP 9 MEQ/L (5-15); AST (GOT) 158 U/L (15-37); BICARBONATE 26.9 MEQ/L (21.0-32.0); BLOOD UREA NITROGEN 3 MG/DL (7-18); CHLORIDE 105 MEQ/L (98-107); GLOMERULAR FILTRATION RATE 107 ML/MIN (>89); POTASSIUM 3.8 MEQ/L (3.5-5.1); SODIUM (NA) 141 MEQ/L (136-145); TOTAL BILIRUBIN ADULT 1.8 MG/DL (0.2-1.0)
[2016-10-08 07:16] VITALS: BP 131/89; PULSE 70; RESP 16; TEMP 97.9; O2SAT 98
[2016-10-08 08:17] LABS: BANDS 1 % (0-6); BASOPHILS 1 % (0-2); EOSINOPHILS 3 % (0-4); NEUTROPHIL # MANUAL DIFF 3.2 TH/MM3 (1.8-7.7); POLYS (SEG NEUTROPHILS) 63 % (16-70); WBC DIFF SAMPLE 100
[2016-10-08 08:18] LABS: PLATELET ESTIMATE SMEAR LOW (NORMAL); PLATELET MORPHOLOGY NORMAL (NORMAL); SCAN/DIFF FINAL DIFF MANUAL
[2016-10-08] MEDS: SODIUM CHLORIDE 0.9% FLUSH 10 ML FLUSH IV FLUSH SCH (09:00)
[2016-10-08] MEDS ORDERED: CHLO10CA5 PO (09:24)
[2016-10-08] MEDS: MULTIVITAMINS/MINERALS THERAPEUTIC TAB PO SCH (09:56)
[2016-10-08] MEDS: THIAMINE HCL 100 MG TAB PO SCH (09:56)
[2016-10-08] MEDS: DOCUSATE SODIUM 50 MG/SENNA 8.6 MG TAB PO SCH (09:57)
[2016-10-08] MEDS: FOLIC ACID 1 MG TAB PO SCH (09:57)
[2016-10-08 11:24] VITALS: BP 142/101; PULSE 86; RESP 17; TEMP 97.6; O2SAT 100
--- NOTE | 2016-10-08 11:28 | HHI.PR ---
Subjective Remarks Follow up for abdominal pain, GI bleeding. The patient reports feeling slightly better today. She has some continued epigastric pain with radiation to the back , relieved by pain medications. She has been able to tolerate full liquid diet, requesting solid foods. Has occasional nausea but no vomiting. She reports occasional tremors and sweats which she reports is consistent with alcohol withdrawal, but is relieved by librium. She is requesting librium prescription at discharge. She is familiar with [facility]. She is motivated to quit. Discussed diagnosis of cirrhosis and senior care effects, strongly encouraged to quit alcohol use altogether. Objective Vitals Vital Signs Date Time Temp Pulse Resp B/P (MAP) Pulse Ox O2 Delivery O2 Flow Rate FiO2 10/08/16 07:16 97.9 70 16 131/89 (103) 98 10/08/16 04:20 18 10/08/16 03:40 97.8 68 18 134/84 (101) 99 10/07/16 23:45 69 110/64 (79) 97 10/07/16 23:08 98.5 72 18 145/70 (95) 98 10/07/16 19:42 98.2 83 18 122/71 (88) 98 10/07/16 16:06 97.5 77 21 146/89 (108) 97 10/07/16 12:40 98.5 70 24 148/78 (101) 99 Room Air 10/07/16 12:30 73 20 159/96 (117) 99 Room Air 10/07/16 12:15 74 20 159/85 (109) 99 Room Air 10/07/16 12:13 98.6 72 20 156/79 (104) 98 Room Air I/O 10/07/16 10/07/16 10/07/16 10/08/16 10/08/16 10/08/16 07:00 15:00 23:00 07:00 15:00 23:00 Intake Total 1480 ml 272.5 ml 480 ml Balance 1480 ml 272.5 ml 480 ml Intake Oral 480 ml 0 ml 480 ml IV Total 1000 ml 172.5 ml Other 100 ml # Voids 1 0 2 Result Diagram: 10/08/16 0551 10/08/16 0551 Imaging Last Impressions Abdomen/Pelvis CT 10/06/16 4987 Signed Impressions: Service Date/Time: Friday, October 07, 2016 00:23 - CONCLUSION: 1. No acute finding is identified in the abdomen or pelvis. 2. However, there is hepatomegaly with cirrhosis. There also findings diagnostic of portal hypertension including splenomegaly, recannulized paraumbilical vein, and varices throughout the abdomen. Karlos Fletcher MD Objective Remarks GENERAL: Well-nourished, well-developed young female patient in [facility]. SKIN: Warm and dry. No rash. HEENT: Normocephalic. Atraumatic. Pupils equal and round. Mucous membranes pink and moist. CARDIOVASCULAR: Regular rate and rhythm. S1, S2 noted. No murmur appreciated. RESPIRATORY: No accessory muscle use. Clear to auscultation. Breath sounds equal bilaterally. GASTROINTESTINAL: Abdomen soft, nondistended, nontender, no guarding. Normoactive bowel sounds x4. MUSCULOSKELETAL: No obvious deformities. Extremities without clubbing, cyanosis , or edema. NEUROLOGICAL: Awake and alert. No obvious cranial nerve deficits. Motor grossly within normal limits. Moves all extremities spontaneously. Normal speech. PSYCHIATRIC: Appropriate mood and affect; insight and judgment normal. Medications and IVs Current Medications Medications (Trade) Dose Ordered Sig/Rochelle Route Start Time Stop Time Status Last Admin (Folate) 1 mg DAILY PO 10/07/16 09:00 10/12/16 08:59 10/08/16 09:57 (Vitamin B1) 100 mg DAILY PO 10/07/16 09:00 10/08/16 09:56 (Theragran M Tab) 1 tab DAILY PO 10/07/16 09:00 10/12/16 08:59 10/08/16 09:56 (Romazicon Inj) 0.2 mg Q1M PRN IV PUSH 10/07/16 02:15 (Ativan) 1 mg Q4H PRN PO 10/07/16 02:15 10/07/16 14:22 (Ativan Inj) 1 mg Q4H PRN IV PUSH 10/07/16 02:15 (Ativan) 2 mg Q2H PRN PO 10/07/16 02:15 (Ativan Inj) 2 mg Q2H PRN IV PUSH 10/07/16 02:15 (Ativan Inj) 2 mg Q1H PRN IV PUSH 10/07/16 02:15 (Ativan Inj) 2 mg Q15M PRN IV PUSH 10/07/16 02:15 (Haldol Inj) 2 mg Q15M PRN IM 10/07/16 02:15 (NS Flush) 2 ml UNSCH PRN IV FLUSH 10/07/16 02:15 10/07/16 17:35 (NS Flush) 2 ml BID IV FLUSH 10/07/16 09:00 10/07/16 10:08 (Zofran Inj) 4 mg Q6H PRN IVP 10/07/16 02:15 (Morphine Inj) 2 mg Q3H PRN IV 10/07/16 02:15 10/08/16 10:07 (Roxicodone) 5 mg Q4H PRN PO 10/07/16 02:15 (Elicia-Colace) 1 tab BID PO 10/07/16 09:00 10/08/16 09:57 (Milk Of Magnesia Liq) 30 ml Q12H PRN PO 10/07/16 02:15 (Senokot) 17.2 mg Q12H PRN PO 10/07/16 02:15 (Dulcolax Supp) 10 mg DAILY PRN RECTAL 10/07/16 02:15 (Lactulose Liq) 30 ml DAILY PRN PO 10/07/16 02:15 Ceftriaxone Sodium 1000 mg/ Sodium Chloride 100 ml @ 200 mls/hr Q24H IV 10/07/16 03:00 10/08/16 03:29 Pantoprazole Sodium 80 mg/ Sodium Chloride 100 ml @ 10 mls/hr CONTINUOUS IV 10/07/16 10:00 10/07/16 20:44 Octreotide Acetate 500 mcg/ Sodium Chloride 500 ml @ 50 mls/hr Q10H IV 10/07/16 10:00 10/12/16 09:59 10/08/16 06:19 (Librium) 10 mg Q6HR PO 10/07/16 13:45 10/08/16 06:19 Miscellaneous Information ALL NURSING DEPARTME... UNSCH PRN .XX 10/07/16 12:10 10/08/16 12:09 A/P Problem List: (1) GI bleed ICD Code: K92.2 - Gastrointestinal hemorrhage, unspecified (2) Alcohol abuse ICD Code: F10.10 - Alcohol abuse, uncomplicated Status: Acute (3) Thrombocytopenia ICD Code: D69.6 - Thrombocytopenia, unspecified Assessment and Plan 36-year-old female with a PMH of Anxiety, Depression, HTN, Alcohol Abuse and Cirrhosis who presented to the ER with complaints of abdominal pain, hematemesis , and melena x3 days. Upper GI Bleeding: with hematemesis/melena. Hgb 13.2. S/p Protonix IV in ER, will continue w/ Protonix. CT Abd/Pelvis images reviewed, shows cirrhosis, hepatomegaly, varices throughout abdomen. Monitor serial H&H, currently stable, Hgb 13.2 --> 12.1. On IV Protonix drip and IV Octreotide drip. Consult GI. EGD showed grade 1 small esophageal varices, no active bleeding; diffuse portal hypertensive gastropathy. Start on propranolol 20mg bid, transition to Protonix po. Advance diet to soft regular. Alcohol Abuse: Drinks 3-5 Four Locos daily (Four [place] is 16oz drink with 11% alcohol, 1 Four [place] equivalent to 3.33 beers). High risk for withdrawal. Continue CIWA, Seizure Precautions, MVT/Thiamine/Folate replacement. Patient motivated to quit, she is very familiar with [facility]. Started on Librium, will provide prescription at discharge. Thrombocytopenia: Platelets 80, previously 192 on 09/22/15. Monitor PLTs. Liver Cirrhosis with Transaminitis: suspect secondary to senior care alcohol abuse. Monitor LFTs. Avoid hepatotoxins. DVT Prophylaxis: teds/SCDs. Pharmacologic contraindication in light of active bleeding. Discharge Planning 1120hrs: Discharge pending clearance from GI. Discharge patient to home Condition on discharge: Improved Regular Diet as tolerated Ad Sheila activity Rx written: propranolol 20mg bid, protonix 40mg, librium Follow-up with primary care physician and gastroenterology Frieda Neely PA-C Oct 08, 2016 11:28 am
[2016-10-08] MEDS: PANTOPRAZOLE INJ 80 MG in SODIUM CHLORIDE 0.9% INJ 100 ML IV SCH (12:22)
[2016-10-08] MEDS ORDERED: PROT40TA PO (15:15)
[2016-10-08] MEDS ORDERED: PROP20TA3 PO (15:15)
--- NOTE | 2016-10-08 15:17 | HHI.DCPOC ---
Discharge Care Plan Diagnosis: (1) Portal hypertensive gastropathy (2) Alcoholic cirrhosis (3) Alcoholic gastritis with bleeding Goals to Promote Your Health * To prevent worsening of your condition and complications * To maintain your health at the optimal level Directions to Meet Your Goals Take your medications as prescribed Follow your dietary instruction Follow activity as directed Keep your appointments as scheduled Take your immunizations and boosters as scheduled If your symptoms worsen call your PCP, if no PCP go to Urgent Care Center or Emergency Room Smoking is Dangerous to Your Health. Avoid second hand smoke Call the 24-hour hour crisis hotline for domestic abuse at Frieda Neely PA-C Oct 08, 2016 15:17
[2016-10-08 15:46] VITALS: BP 118/77; PULSE 75; RESP 18; TEMP 98.6; O2SAT 96
[2016-10-08] MEDS: SODIUM CHLORIDE 0.9% FLUSH 10 ML FLUSH IV FLUSH PRN (17:33)
--- NOTE | 2016-10-08 18:05 | HHI.GIFU ---
Subjective Remarks Ambulating about room. No n/v. No hematemesis. Tolerating diet. D/W patient importance of complete alcohol cessation and she verbalizes understanding. (Kimberley Calderon) Objective Vitals I&O Vital Signs Date Time Temp Pulse Resp B/P (MAP) Pulse Ox O2 Delivery O2 Flow Rate FiO2 10/08/16 15:46 98.6 75 18 118/77 (91) 96 10/08/16 11:24 97.6 86 17 142/101 (115) 100 10/08/16 07:16 97.9 70 16 131/89 (103) 98 10/08/16 04:20 18 10/08/16 03:40 97.8 68 18 134/84 (101) 99 10/07/16 23:45 69 110/64 (79) 97 10/07/16 23:08 98.5 72 18 145/70 (95) 98 10/07/16 19:42 98.2 83 18 122/71 (88) 98 I/O 10/07/16 10/07/16 10/07/16 10/08/16 10/08/16 10/08/16 07:00 15:00 23:00 07:00 15:00 23:00 Intake Total 1480 ml 272.5 ml 480 ml 90 ml 470 ml Balance 1480 ml 272.5 ml 480 ml 90 ml 470 ml Intake Oral 480 ml 0 ml 480 ml IV Total 1000 ml 172.5 ml 90 ml 470 ml Other 100 ml # Voids 1 0 2 1 # Bowel Movements 1 Laboratory Laboratory Tests Test 10/07/16 19:49 10/08/16 00:28 10/08/16 05:51 Hemoglobin 12.7 12.1 12.6 Hematocrit 38.6 36.6 37.3 White Blood Count 5.0 Red Blood Count 3.98 Mean Corpuscular Volume 93.6 Mean Corpuscular Hemoglobin 31.7 Mean Corpuscular Hemoglobin Concent 33.8 Red Cell Distribution Width 15.3 Platelet Count 59 Mean Platelet Volume 8.1 Neutrophils (%) (Auto) 62.2 Lymphocytes (%) (Auto) 26.6 Monocytes (%) (Auto) 7.2 Eosinophils (%) (Auto) 3.3 Basophils (%) (Auto) 0.7 Neutrophils # (Auto) 3.1 Lymphocytes # (Auto) 1.3 Monocytes # (Auto) 0.4 Eosinophils # (Auto) 0.2 Basophils # (Auto) 0.0 CBC Comment AUTO DIFF Differential Total Cells Counted 100 Neutrophils % (Manual) 63 Band Neutrophils % 1 Lymphocytes % 23 Monocytes % 9 Eosinophils % 3 Basophils % 1 Neutrophils # (Manual) 3.2 Differential Comment FINAL DIFF MANUAL Atypical Lymphocytes Platelet Estimate LOW Platelet Morphology Comment NORMAL Prothrombin Time 14.8 Prothromb Time International Ratio 1.3 Blood Urea Nitrogen 3 Creatinine 0.63 Random Glucose 84 Total Protein 7.2 Albumin 2.9 Calcium Level 7.9 Alkaline Phosphatase 96 Aspartate Amino Transf (AST/SGOT) 158 Alanine Aminotransferase (ALT/SGPT) 48 Total Bilirubin 1.8 Sodium Level 141 Potassium Level 3.8 Chloride Level 105 Carbon Dioxide Level 26.9 Anion Gap 9 Estimat Glomerular Filtration Rate 107 Imaging Last Impressions Abdomen/Pelvis CT 10/06/16 8691 Signed Impressions: Service Date/Time: Friday, October 07, 2016 00:23 - CONCLUSION: 1. No acute finding is identified in the abdomen or pelvis. 2. However, there is hepatomegaly with cirrhosis. There also findings diagnostic of portal hypertension including splenomegaly, recannulized paraumbilical vein, and varices throughout the abdomen. Karlos Fletcher MD Physical Exam HEENT: Normocephalic; atraumatic; no jaundice. CHEST: CTA CARDIAC: RRR ABDOMEN: Soft, nondistended, nontender; no hepatosplenomegaly; bowel sounds are present in all four quadrants. EXTREMITIES: No clubbing, cyanosis, or edema. SKIN: Normal; no rash; no jaundice. 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 (Kimberley Calderon [facility]) Assessment and Plan Plan ASSESSMENT: - Upper GIB, Hematemesis, Melena. Pt with liver cirrhosis/ongoing ETOH use. S/ P recent hospitalization at [facility] 1 month ago for the same, had egd/colonoscopy- states she was told that her bleeding was related to ETOH abuse, but cannot recall the details. She continues to drink 3-5 24 oz beers daily. No nsaids since last hospitalization. S/P EGD (10/07/16)--> 1. Grade 1 Esophageal varices, small and not exhibiting features of active or recent bleeding. 2. Portal hypertensive gastropathy was found in the entire examined stomach 3. Food residue 4. Normal duodenal mucosa 5. Retroflexion was performed and was normal. No further bleeding. Tolerating diet. HH has remained stable. - Abdominal pain. CT Scan abdomen and pelvis (10/07/16)-----> No acute finding is identified in the abdomen or pelvis. However, there is hepatomegaly with cirrhosis. There are also findings diagnostic of portal hypertension including splenomegaly, recannulized paraumbilical vein, and varices throughout the abdomen. Improved. Protonix. - Elevated LFTs, Liver cirrhosis with portal htn, splenomegaly, varices on CT. Ongoing ETOH use. MELD 7. - Thrombocytopenia, coagulopathy secondary to liver cirrhosis. - ETOH abuse, DT precautions per attending - Asthma, depression, hx htn per attending PLAN: - Heart healthy diet - D/C protonix/octreotide gtt - Protonix 40mg po daily - Complete ETOH cessation- d/w patient - Okay to d/c home from GI standpoint - FU SALLY 2 weeks - Rpt EGD in 6 months - Pt seen and examined by Dr. Chavez and myself and this note is written on his behalf (Kimberley Calderon) Physician Comments Plan as above, please notify us if needed. (Hansel Chavez MD) Kimberley Calderon Oct 08, 2016 18:05 Hansel Chavez MD Oct 08, 2016 21:52
[2016-10-08] MEDS ORDERED: PANTOPRAZOLE SOD 40 MG DELAYED RELEASE TAB PO SCH (21:00)
[2016-10-08] MEDS ORDERED: PROPRANOLOL HCL 20 MG TAB PO SCH (21:00)
== END 2016-10-08 19:32 | disposition home or self-care (01) ==
LOC: NEPC 22:48 → NEDA 10-07 02:11 → NEPGCP 10-07 03:39
PROVIDERS: ADMIT Family Medicine; ATTEND Family Medicine
DX: K29.21 Alcoholic gastritis with bleeding (principal); I85.00 Esophageal varices without bleeding; K31.89 Other diseases of stomach and duodenum; I10 Essential (primary) hypertension; R74.0 Nonspecific elevation of levels of transaminase and lactic acid dehydrogenase [LDH]; R79.89 Other specified abnormal findings of blood chemistry; R16.1 Splenomegaly, not elsewhere classified
CPT/HCPCS: 00740; 43235; 74177; 80053; 82948; 83690; 84703; 85007; 85014; 85018; 85025; 85027; 85610; 85730; 86850; 86900; 86901; 96365; 96366; 96375; 96376; 99285; C9113; G0378; J0696; J2270; J2354; J2405; J7030; J7040; Q9967

== ENCOUNTER 2016-12-02 21:41 | Emergency (ER) | payer SELFPAY ==
[~2016-12-02] VITALS: Ht 165.1 cm; Wt 75.0 kg
[~2016-12-02 21:41] MED LIST changes: +CHLO10CA5 PO; -CIPR250T2 PO; -DICY1TAB26 PO; -IOHEXOL 350 MG/ML 10 ML VIAL (for RAD DIAG) IVCONTRAST ONE; -PROM25SU8 PO; +PROP20TA3 PO; +PROT40TA PO; -Z.0.BCPILL PO
[2016-12-02 21:54] VITALS: BP 133/88; PULSE 83; RESP 16; TEMP 98.6; O2SAT 100
--- NOTE | 2016-12-02 22:32 | PD ---
HPI Chief Complaint: GI Complaint Time Seen by Provider: 22:02 Travel History International Travel<30 days: No Contact w/Intl Traveler<30days: No Traveled to known affect area: No History of Present Illness HPI 36-year-old female came to the emergency room with history of painful hematochezia for past 2 days. Patient says that she had constipation followed by large bowel movement about 2 days ago. She is not sure but thinks that the bleeding was associated during this same time. Currently she has blood coming out and bowel movements are painful. She says she has had this once before and was told that her liver enzymes were elevated.. She has had 4-5 episodes of bloody stools so far. No history of dizziness or lightheadedness. Vital signs are stable. Patient is not on any blood thinners or medications. PFSH Past Medical History Narrative Medical List of her past medical, surgical, social and family history is reviewed from the nursing note. Asthma: Yes Anxiety: Yes Depression: Yes Cardiovascular Problems: Yes Diminished Hearing: No Genitourinary: Yes (UTI) Hypertension: Yes Psychiatric: Yes (bipolar) Reproductive: Yes (HPV) Respiratory: Yes (ASTHMA) Immunizations Current: Yes ?: Unknown LMP: 8-17 : 3 Para: 1 : 2 Past Surgical History Surgical History: No Previous Surgery Other Surgery: No Social History Alcohol Use: Yes (DAILY) Tobacco Use: No Substance Use: No Allergies-Medications (Allergen,Severity, Reaction): Coded Allergies: ciprofloxacin (Unverified Allergy, Severe, Urinary Freq (Inc/Dec), ) Comments List of her allergies reviewed from the nursing note. Reported Meds & Prescriptions Reported Meds & Active Scripts Active Ibuprofen 600 Mg Tab 600 Mg PO Q6H PRN Miralax Powder (Polyethylene Glycol 3350 Powder) 17 Gm Powd 17 Gm PO DAILY Mix and dissolve one measuring cap-ful (17 grams) in water or juice. Anusol-Hc Supp (Hydrocortisone Supp) 25 Mg Supp 25 Mg RECTAL BID Narrative Medication List of her home medications reviewed from the nursing note. Review of Systems Except as stated in HPI: all other systems reviewed are Neg Gastrointestinal: Positive: Hematochezia, Constipation Physical Exam Narrative GENERAL: Awake, alert, no obvious distress SKIN: Focused skin assessment warm/dry. HEAD: Atraumatic. Normocephalic. EYES: Pupils equal and round. No scleral icterus. No injection or drainage. ENT: No nasal bleeding or discharge. Mucous membranes pink and moist. NECK: Trachea midline. No JVD. CARDIOVASCULAR: Regular rate and rhythm. No murmur appreciated. RESPIRATORY: No accessory muscle use. Clear to auscultation. Breath sounds equal bilaterally. GASTROINTESTINAL: Abdomen soft, non-tender, nondistended. Hepatic and splenic margins not palpable. Perineal/anal exam shows a large tear at 12 o'clock position. There is significant anal spasm due to the pain. MUSCULOSKELETAL: No obvious deformities. No clubbing. No cyanosis. No edema. NEUROLOGICAL: Awake and alert. No obvious cranial nerve deficits. Motor grossly within normal limits. Normal speech. PSYCHIATRIC: Appropriate mood and affect; insight and judgment normal. Data Data Last Documented VS Orders Orders Complete Blood Count With Diff (12/02/16 22:08) Comprehensive Metabolic Panel (12/02/16 22:08) Urinalysis - C+S If Indicated (12/02/16 22:08) Ed Urine Pregnancytest Poc (12/02/16 22:08) Iv Access Insert/Monitor (12/02/16 22:08) Oximetry (12/02/16 22:08) Lipase (12/02/16 22:08) Prothrombin Time / Inr (Pt) (12/02/16 22:09) Ibuprofen (Motrin) (12/02/16 22:45) Ed Discharge Order (12/02/16 23:35) Labs Laboratory Tests Test 12/02/16 22:10 White Blood Count 7.5 TH/MM3 Red Blood Count 4.12 MIL/MM3 Hemoglobin 13.1 GM/DL Hematocrit 38.9 % Mean Corpuscular Volume 94.3 FL Mean Corpuscular Hemoglobin 31.7 PG Mean Corpuscular Hemoglobin Concent 33.6 % Red Cell Distribution Width 14.9 % Platelet Count 74 TH/MM3 Mean Platelet Volume 8.4 FL Neutrophils (%) (Auto) 61.3 % Lymphocytes (%) (Auto) 31.2 % Monocytes (%) (Auto) 5.7 % Eosinophils (%) (Auto) 1.4 % Basophils (%) (Auto) 0.4 % Neutrophils # (Auto) 4.6 TH/MM3 Lymphocytes # (Auto) 2.3 TH/MM3 Monocytes # (Auto) 0.4 TH/MM3 Eosinophils # (Auto) 0.1 TH/MM3 Basophils # (Auto) 0.0 TH/MM3 CBC Comment AUTO DIFF Differential Comment AUTO DIFF CONFIRMED Platelet Estimate LOW Platelet Morphology Comment NORMAL Prothrombin Time 13.1 SEC Prothromb Time International Ratio 1.2 RATIO Urine Color LIGHT-YELLOW Urine Turbidity CLEAR Urine pH 6.5 Urine Specific Allison 1.003 Urine Protein NEG mg/dL Urine Glucose (UA) NEG mg/dL Urine Ketones NEG mg/dL Urine Occult Blood NEG Urine Nitrite NEG Urine Bilirubin NEG Urine Urobilinogen LESS THAN 2.0 MG/DL Urine Leukocyte Esterase TRACE Urine RBC 1 /hpf Urine WBC 1 /hpf Urine Squamous Epithelial Cells 2 /hpf Urine Bacteria RARE /hpf Microscopic Urinalysis Comment CULT NOT INDICATED Blood Urea Nitrogen 4 MG/DL Creatinine 0.55 MG/DL Random Glucose 94 MG/DL Total Protein 8.2 GM/DL Albumin 3.4 GM/DL Calcium Level 8.8 MG/DL Alkaline Phosphatase 113 U/L Aspartate Amino Transf (AST/SGOT) 141 U/L Alanine Aminotransferase (ALT/SGPT) 62 U/L Total Bilirubin 1.4 MG/DL Sodium Level 141 MEQ/L Potassium Level 3.8 MEQ/L Chloride Level 108 MEQ/L Carbon Dioxide Level 25.7 MEQ/L Anion Gap 7 MEQ/L Estimat Glomerular Filtration Rate 125 ML/MIN Lipase 247 U/L [facility] Medical Decision Making Medical Screen Exam Complete: Yes Emergency Medical Condition: Yes Medical Record Reviewed: Yes Differential Diagnosis Anal fissure, anal tear Narrative Course 11:40 PM there was blood test ordered prior to me going to see the patient. Blood test results are back. LFTs are slightly elevated but not significantly different from her previous test results. Hemoglobin and hematocrit is stable. I have discharged the patient home on prescriptions and instructions at this point. Procedures EKG Prior to Arrival: No HemaPrompt Point of Care Internal Pos. & Neg. Controls: Passed Fecal Specimen Occult Blood: Negative Diagnosis Primary Impression: Anal fissure Additional Impression: Hematochezia Referrals: Primary Care Physician 1 week Additional Instructions: Take the medications as per the prescription direction. Sitz bath which includes filling the top with a foot of lukewarm water and adding 2-3 tablespoons of Epsom salt and then allowing your bottom to soak in the water for 20 minutes each time. Due to these steps 4-5 times a day if possible. High fiber diet would be helpful as well. Follow up with her primary care. Return to the ER if the condition worsens or any other new concerns. Med/Other Pt SpecificInfo: Prescription(s) given Scripts Ibuprofen (Ibuprofen) 600 Mg Tab 600 MG PO Q6H Y for Pain/Inflammation, #40 TAB 0 Refills Prov: Shelia Garza MD 12/02/16 Polyethylene Glycol 3350 Powder (Miralax Powder) 17 Gm Powd 17 GM PO DAILY for Constipation, #1 CAN 0 Refills Mix and dissolve one measuring cap-ful (17 grams) in water or juice. Prov: Shelia Garza MD 12/02/16 Hydrocortisone Supp (Anusol-Hc Supp) 25 Mg Supp 25 MG RECTAL BID, #12 SUPP Prov: Shelia Garza MD 12/02/16 Disposition: 01 DISCHARGE HOME Condition: Stable Shelia Garza MD Dec 02, 2016 22:32
[2016-12-02 22:42] LABS: AUTOMATED NEUTROPHIL # 4.6 TH/MM3 (1.8-7.7); BACTERIA, URINE RARE /hpf; BASOPHIL % 0.4 % (0.0-2.0); BILIRUBIN, URINE NEG (NEG); BLOOD, URINE NEG (NEG); EOSINOPHIL # 0.1 TH/MM3 (0-0.4); EOSINOPHIL % 1.4 % (0.0-4.0); GLUCOSE,URINE NEG (NEG); HEMATOCRIT 38.9 % (35.0-46.0); HEMOGLOBIN 13.1 GM/DL (11.6-15.3); KETONE, URINE NEG (NEG); LYMPH % 31.2 % (9.0-44.0); LYMPHOCYTE # 2.3 TH/MM3 (1.0-4.8); MEAN CELL VOLUME 94.3 FL (80.0-100.0); MEAN CORPUSCULAR HEMOGLOBIN 31.7 PG (27.0-34.0); MEAN CORPUSCULAR HGB CONC 33.6 % (32.0-36.0); MEAN PLATELET VOLUME 8.4 FL (7.0-11.0); MONO % 5.7 % (0.0-8.0); MONOCYTE # 0.4 TH/MM3 (0-0.9); NEUT % 61.3 % (16.0-70.0); NITRITE,URINE NEG (NEG); PH, URINE 6.5 (5.0-8.5); PLATELET COUNT 74 TH/MM3 (150-450); RED BLOOD COUNT 4.12 MIL/MM3 (4.00-5.30); RED CELL DISTRIBUTION WIDTH 14.9 % (11.6-17.2); SQUAMOUS EPITHELIAL CELL URINE 2 /hpf (0-5); URINE COLOR LIGHT-YELLOW (YELLW/STRAW); URINE LEUKOCYTE ESTERASE TRACE (NEG); WHITE BLOOD COUNT 7.5 TH/MM3 (4.0-11.0)
[2016-12-02] MEDS ORDERED: IBUPROFEN 600 MG TAB PO ONE (22:45)
[2016-12-02 23:02] LABS: ALBUMIN 3.4 GM/DL (3.4-5.0); ALT (GPT) 62 U/L (10-53); AST (GOT) 141 U/L (15-37); BICARBONATE 25.7 MEQ/L (21.0-32.0); BLOOD UREA NITROGEN 4 MG/DL (7-18); CALCIUM 8.8 MG/DL (8.5-10.1); CHLORIDE 108 MEQ/L (98-107); CREATININE 0.55 MG/DL (0.50-1.00); GLOMERULAR FILTRATION RATE 125 ML/MIN (>89); GLUCOSE,RANDOM 94 MG/DL (74-106); INTERNATIONAL NORMALIZED RATIO 1.2 RATIO; LIPASE 247 U/L (73-393); PROTHROMBIN TIME - PATIENT 13.1 SEC (9.8-11.6); SODIUM (NA) 141 MEQ/L (136-145)
[2016-12-02 23:04] LABS: ALKALINE PHOSPHATASE 113 U/L (45-117); TOTAL BILIRUBIN ADULT 1.4 MG/DL (0.2-1.0); TOTAL PROTEIN 8.2 GM/DL (6.4-8.2)
[2016-12-02] MEDS ORDERED: ANUS25SU RECTAL (23:36)
[2016-12-02] MEDS ORDERED: IBUP-232 PO (23:36)
[2016-12-02] MEDS ORDERED: MIRA3350 PO (23:36)
[2016-12-02 23:38] VITALS: BP 130/76
== END 2016-12-03 00:08 | disposition home or self-care (01) ==
LOC: NEPC 21:41
DX: K60.2 Anal fissure, unspecified (principal); K92.1 Melena
CPT/HCPCS: 80053; 81001; 83690; 84703; 85025; 85610; 99283

== ENCOUNTER 2017-02-15 12:53 | Emergency (ER) | payer SELFPAY ==
[~2017-02-15] VITALS: Ht 165.1 cm; Wt 72.3 kg
[~2017-02-15 12:53] MED LIST changes: +ANUS25SU RECTAL; -CHLO10CA5 PO; +IBUP-232 PO; +MIRA3350 PO; -PROP20TA3 PO; -PROT40TA PO
[2017-02-15 12:59] VITALS: BP 145/80; PULSE 82; RESP 16; TEMP 98.1; O2SAT 98
[2017-02-15] MEDS ORDERED: RESP: ALBUTEROL 2.5 MG/IPRATROPIUM 0.5 MG NEB (SCH) NEB ONE (13:15)
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
[2017-02-15] MEDS ORDERED: PRED50 PO (15:46)
[2017-02-15] MEDS ORDERED: IBUP1TAB7 PO (15:46)
[2017-02-15] MEDS ORDERED: VENTAER INH (15:46)
== END 2017-02-15 15:52 | disposition home or self-care (01) ==
LOC: PHEFT 12:53
DX: S20.01XA Contusion of right breast, initial encounter (principal); Y04.0XXA Assault by unarmed brawl or fight, initial encounter; J45.901 Unspecified asthma with (acute) exacerbation; I10 Essential (primary) hypertension; F32.9 Major depressive disorder, single episode, unspecified; F41.9 Anxiety disorder, unspecified
CPT/HCPCS: 71046; 94664; 99284